=== PATIENT | male | born 1995 | race Caucasian/White ===

== ENCOUNTER 2017-10-16 15:27 | Emergency (ER) | payer OTHER ==
[~2017-10-16] VITALS: Ht 188 cm; Wt 76.7 kg
[2017-10-16] MEDS ORDERED: ONDANSETRON ODT 4 MG PO ONE (16:00)
[2017-10-16 16:01] LABS: MEAN CORPUSCULAR HEMOGLOBIN 30.7 pg (27.5-34.5); MEAN CORPUSCULAR HGB CONC 34.3 g/dL (33.2-36.2); MEAN CORPUSCULAR VOLUME 89.4 fL (81-97); MEAN PLATELET VOLUME 8.1 fL (7.4-10.4); PLATELET COUNT 227 x10^3/uL (130-400); RED BLOOD COUNT 5.31 x10^6/uL (4.38-5.82); RED CELL DISTRIBUTION WIDTH 12.4 % (9.4-14.8)
[2017-10-16 16:05] LABS: ANION GAP 6 mmol/L (5-15); CALCIUM 9.3 mg/dL (8.5-10.1); CHLORIDE 107 mmol/L (98-107)
[2017-10-16 16:06] LABS: CREATININE 1.32 mg/dL (0.7-1.3)
[2017-10-16] MEDS ORDERED: ONDANSETRON ODT 4 MG ONE (16:10)
[2017-10-16 16:30] LABS: MD YES
[2017-10-16 16:39] LABS: BASOS#(MANUAL) 0.02 x10^3/uL (0-0.1); BASOS% (MANUAL) 1 % (0-1); LYMPH#(MANUAL) 0.82 x10^3/uL (1-3.4); LYMPHS% (MANUAL) 34 % (22-44); MONOS#(MANUAL) 0.14 x10^3/uL (0.3-2.7); MONOS% (MANUAL) 6 % (2-9); REACTIVE LYMPHS % (MANUAL) 4 % (0-0); SEG#(MANUAL) 1.32 x10^3/uL (1.8-6.8); SEGS% (MANUAL) 55 % (42-75)
[2017-10-16 16:40] LABS: <PLATELET ESTIMATE> ADEQUATE; <PLT MORPHOLOGY> NORMAL PLT MORPH; <RBC MORPHOLOGY> NORMAL
[2017-10-16 18:16] VITALS: BP 121/73
== END 2017-10-16 18:18 | disposition home or self-care (01) ==
LOC: ED 18:10
DX: R55 Syncope and collapse (principal); Z87.891 Personal history of nicotine dependence
CPT/HCPCS: 36415; 70450; 80048; 85025; 99285; Q0162